=== PATIENT | male | born 2000 | race Caucasian/White ===

== ENCOUNTER → 2023-12-03 09:18 | Outpatient (BNVA) | payer OTHER, SELFPAY | PROVIDERS: Visit Provider Physician Assistant Medical | DX: Z13.89 Encounter for screening for other disorder (principal) | CPT/HCPCS: 90715; 99211 ==

== ENCOUNTER 2024-03-28 15:27 | Emergency (ER) | payer OTHER, SELFPAY ==
--- NOTE | ~2024-03-28 | XR_ITS ---
EXAMINATION: XR HAND, LEFT CLINICAL INFORMATION: Injury at work. COMPARISON: No similar priors. TECHNIQUE: PA, lateral, and oblique views of the left hand. FINDINGS: No fracture or subluxation. Nonaggressive-appearing sclerotic lesion measuring 1.3 cm in length in the proximal phalanx of the first digit/thumb most suggestive of a bone island. No unexpected radiopaque foreign bodies. No significant soft tissue finding. XR/XR hand LT min 3V IMPRESSION: Normal radiographic appearance of the left hand.
[2024-03-28 15:36] VITALS: BP 140/71; PULSE 80; RESP 16; O2SAT 98; BMI 22.6
--- NOTE | 2024-03-28 16:09 | ED_ITS ---
HPI - Extremity Problem General Chief complaint: Extremity Injury, Upper Stated complaint: Left index finger injury w/comp Time Seen by Provider: 03/28/24 15:35 Source: patient, RN notes reviewed and old records reviewed Mode of arrival: ambulatory History of Present Illness ED Provider: Angela Valero PA-C HPI Narrative: 23-year-old male with no significant past medical history presenting to the ED complaining of left index finger pain s/p hearing pop after patient squeezed/rotated fingers [employer]. 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 Denies injury to other area, numbness, tingling. MD Complaint: extremity pain Related Data Allergies Allergy/AdvReac Type Severity Reaction Status Date / Time No Known Allergies Allergy Verified 03/28/24 15:36 Review of Systems Review of Systems: Constitutional: No Fever, No Chills Cardiovascular: No Chest Pain, No SOB Respiratory: No Cough Gastrointestinal: No Nausea, No Vomiting, No Diarrhea, No Constipation, No Abdominal pain Musculoskeletal: + joint pain, No Myalgias,+ Joint Swelling Skin: No Skin Lesions, No rash Neuro: No Weakness, No Numbness, No Paresthesias Yes all other systems are reviewed and are negative Constitutional: Constitutional: Reports as per [facility] Past Medical History Attestation statement: The following information was validated with the patient. Source: old records reviewed Social History Social History Advance Directives: No Advance Directives Information Provided: Yes Do you have a plan to hurt others: No Plan Physical Exam Vital Signs: Vital Signs: Last Vital Signs Temp 98.2 F 03/28/24 17:10 Pulse 67 03/28/24 17:10 Resp 16 03/28/24 17:10 BP 117/73 03/28/24 17:10 Pulse Ox 98 03/28/24 17:10 O2 Del Method Room Air 03/28/24 17:10 BMI result Body Mass Index 22.6 Const: General: cooperative, healthy appearing and no acute distress Orientation/consciousness: patient oriented x3 Limitations: no limitations HEENT: Head: Yes normal to inspection and Yes atraumatic Ears: hearing grossly normal bilaterally General nose exam: Normal external nose present Face and sinus: Yes normal facial exam Eyes: General: appearance normal, both eyes and all related structures EOM: EOMs intact bilaterally Neck: Neck: Yes normal visual inspection and Yes no meningeal signs Resp: Effort & Inspection: normal respiratory effort and no respiratory distress Cardio: Rate: regular rate Skin: Rashes: no rashes Wounds: no wounds Neuro: General: patient oriented x3, tone normal and no meningeal signs Cranial nerves: Yes CN's II-XII intact bilaterally Gait exam (Neuro): Normal gait present Extrem: Other: No deformity. Left index finger with mild tenderness to palpation. Full range of motion intact. Neurovascularly intact. [id number] opposition intact. No snuffbox tenderness General: Yes normal to inspection Course Course Course Narrative: XR hand LT min 3V IMPRESSION: Normal radiographic appearance of the left hand. Results discussed with patient including worrisome signs and symptoms and strict return precautions, and when to return to the emergency department. They verbalized understanding and feel safe for discharge at this time. Medical Decision Making Medical Decision Making MDM Narrative: 23-year-old male with no significant past medical history presenting to the ED complaining of left index finger pain s/p hearing pop after patient sque ezed/rotated fingers [employer]. On exam vital signs stable, NAD, nontoxic appearing, physical exam as above. Concern for strain vs hyperextension injury vs fracture. Plan: X-rays Please refer to course for remaining clinical decision making, interpretation of labs/imaging results, and discussions with consultants and/or family members. Differential Diagnosis Differential Diagnoses: The differential diagnosis associated with the presentation includes As above Independent Interpretation I performed an independent interpretation of an: Plain X-Ray (My interpretation: Appear unremarkable) Radiology Impression Discussion of test interpretation with radiology: I have reviewed the radiologist's reading. External Record Review External record reviewed: Inpatient record, Office record, Outpatient record, Prior outpatient labs, Prior outpatient radiology, Primary care record and Outside ED record Tests considered The following testing was considered but not selected: As above Prescription Management I considered prescription management with: Pain Medication Discharge Plan Discharge Clinical Impression: Hand strain Patient Disposition: Home, Self-Care Additional Instructions: Your x-rays are unremarkable Take Tylenol and Motrin at home for pain Ice Follow-up with [facility] and your doctor Referrals: [facility] [Outside] Alexandr Lopez MD [Primary Care Provider] - Interventions: ED Discharge Assessment Last Done: 03/28/24 17:10 Discharge Date/Time: 03/28/24 17:02 Print Language: Nepali
[2024-03-28 16:59] VITALS: BP 117/73; PULSE 67; RESP 16; TEMP 36.8; O2SAT 98
[2024-03-28 17:10] VITALS: BP 117/73; PULSE 67; RESP 16; TEMP 36.8; O2SAT 98
== END 2024-03-28 17:02 | disposition home or self-care (01) ==
PROVIDERS: Emergency Provider Emergency Medicine; PCP Internal Medicine
DX: S66.912A Strain of unspecified muscle, fascia and tendon at wrist and hand level, left hand, initial encounter (principal); Y04.2XXA Assault by strike against or bumped into by another person, initial encounter; Y93.F9 Activity, other caregiving; Y92.230 Patient room in hospital as the place of occurrence of the external cause; Y99.9 Unspecified external cause status
CPT/HCPCS: 73130; 99283

== ENCOUNTER → 2024-10-05 11:18 | Outpatient (BNVA) | payer OTHER, SELFPAY | PROVIDERS: PCP Internal Medicine; Visit Provider Physician Assistant Medical | DX: Z13.89 Encounter for screening for other disorder (principal) | CPT/HCPCS: 84450; 84460; 86803; 87389; 99203 ==

== ENCOUNTER → 2024-11-16 15:39 | Outpatient (BNVA) | payer OTHER, SELFPAY | PROVIDERS: PCP Internal Medicine | DX: Z13.89 Encounter for screening for other disorder (principal) | CPT/HCPCS: 84450; 84460; 86803; 87389; 99211 ==

== ENCOUNTER → 2025-01-07 15:30 | Outpatient (BNVA) | payer OTHER, SELFPAY | PROVIDERS: PCP Internal Medicine; Visit Provider Physician Assistant Medical | DX: Z13.89 Encounter for screening for other disorder (principal) | CPT/HCPCS: 84450; 84460; 86803; 87389; 99211 ==